=== PATIENT | male | born 1960 | race Caucasian/White ===

== ENCOUNTER 2024-10-24 12:14 | Emergency (ER) | payer OTHER, SELFPAY ==
[2024-10-24] MEDS ORDERED: POTASSIUM CHLORIDE 10MEQ/100ML SWI As Ordered ONE (12:33)
[2024-10-24] MEDS ORDERED: [UNRECOGNIZED DRUG - OTHER] As Ordered ONE (12:36)
[2024-10-24] MEDS ORDERED: MAGNESIUM SULFATE As Ordered ONE (12:36)
[2024-10-24] MEDS ORDERED: EPINEPHrine 1 MG/10 ML SYRINGE 1.5IN ONE (13:15)
[2024-10-24] MEDS ORDERED: AMIODARONE 150 MG/3 ML VIAL ONE (13:15)
[2024-10-24] MEDS ORDERED: CALCIUM CHLORIDE 10% 1 GM/10 ML SYR ONE (13:15)
[2024-10-24] MEDS ORDERED: MAGNESIUM SULFATE ONE (13:15)
[2024-10-24] MEDS ORDERED: SODIUM BICARBONATE 8.4% INJ 50ML SYRINGE ONE (13:15)
[2024-10-24] MEDS ORDERED: AMIODARONE HCL 150 MG/100 ML PREMIXED BAG ONE (13:15)
== END 2024-10-24 16:44 | disposition expired ==
LOC: M ED 13:14
DX: I46.9 Cardiac arrest, cause unspecified (principal); I10 Essential (primary) hypertension; F17.210 Nicotine dependence, cigarettes, uncomplicated
CPT/HCPCS: 36415; 80047; 99291; J0168; J0282; J0618; J3475